=== PATIENT | female | born 1975 | race Caucasian/White ===

== ENCOUNTER → 2016-09-25 17:14 | Outpatient (CLI) | payer BC ==
[2010-12-13 07:22] VITALS: BMI 20.2
== END | disposition home or self-care (01) ==
LOC: D.MAMMO 16:00
DX: Z12.31 Encounter for screening mammogram for malignant neoplasm of breast (principal)

== ENCOUNTER 2017-03-28 06:43 | Day surgery (SDC) | payer BC ==
[~2017-03-28] VITALS: Ht 167.6 cm; Wt 63.6 kg
--- NOTE | ~2017-03-28 | OP ---
PATIENT NAME: NOÉ COLEMAN MEDICAL RECORD: [id number] :73 LOCATION:D.OPS ADMISSION DATE: SURGEON: DEMARCO BRAVO MD DATE OF OPERATION: 03/28/2017 PREOPERATIVE DIAGNOSES: 1. Epigastric abdominal pain. 2. Lower midline inferior chest pain. 3. Gastroesophageal reflux. POSTOPERATIVE DIAGNOSES: 1. Epigastric abdominal pain. 2. Lower midline inferior chest pain. 3. Gastroesophageal reflux. 4. Very mild gastritis at the pylorus. Normal duodenum. Small hiatal hernia. 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 PROCEDURE: Esophagogastroduodenoscopy with antral and distal esophageal biopsies. SURGEON: Demarco Bravo MD TRANSPORTATION CONSULTANT: None. BLOOD LOSS: Minimal. ANESTHESIA: IV sedation. COMPLICATIONS: None. The risks, possible complications and alternatives to the procedure were explained to the patient. She elects to proceed. ENDOSCOPIC COURSE: The patient was conveyed to the endoscopy suite electively on 03/28/2017. IV sedation was induced by the anesthesia staff. A bite block was inserted. A gastroscope was inserted into the mouth. It was advanced easily into the hypopharynx. The esophagus was easily intubated as were the stomach and duodenum. Upon withdrawal, retroflexed and angulus views were obtained. Antral biopsies were obtained. Distal esophageal biopsies were obtained. The endoscope was then withdrawn under direct vision. I found no reason for the patient's pain. We are going to proceed with the CT of the chest with IV contrast. TRANSINT:[id number] Voice Confirmation ID: [id number] DOCUMENT ID: [id number] DEMARCO BRAVO MD CC: DARWIN COLEMAN M.D. and DARWIN VEGAS MD [id number] DICTATION DATE: 03/28/17 1026 DOCUMENTATION IMPROVEMENT SPECIALIST: 03/28/17 1304 [address] [facility] [address] [place] [address]
--- NOTE | ~2017-03-28 | HP ---
PATIENT: NOÉ REED MEDICAL RECORD: [id number] ACCOUNT: [id number] LOCATION:DTAYA : 73 ADMISSION DATE: 03/28/17 HISTORY AND PHYSICAL EXAMINATION CHIEF COMPLAINT: Pain. HISTORY OF PRESENT ILLNESS: The patient has pain over the xiphoid process. No pain over the costochondral cartilages. She does have a history of reflux. Reflux is pretty well controlled. She states that she does not think that this is reflux type of pain. It is not necessarily associated with eating food. She has had a bout of nausea with eating food in the past; however, this pain was not associated with that. The entire examination was performed in the presence of a female nurse. This is Dr. Reed's . No melena. No hematochezia. No hematemesis. No odynophagia. No dysphagia. PAST MEDICAL AND SURGICAL HISTORY: History of right elbow surgery, history of breast augmentation, history of right knee arthroscopy, history of hysterectomy. REVIEW OF SYSTEMS: Negative for coronary artery disease or hypertension. Negative for CVA or seizures. Negative for diabetes or thyroid problems. ALLERGIES: CODEINE AND HYDROCODONE. HOME MEDICATIONS: Nexium. SOCIAL HISTORY: She is an avid runner, exercises frequently. She has not changed her exercise routine anytime recently. She is also a nonsmoker. PHYSICAL EXAMINATION: GENERAL: The patient does not appear acutely ill. She does not appear chronically ill. VITAL SIGNS: Reviewed. EARS: External ears appear normal. EYES: Extraocular movements are intact. NECK: Trachea is midline. CHEST: No intercostal retractions. The rest of the chest examination as listed above. ABDOMEN: Tender only over the xiphoid process, this is point tenderness. EXTREMITIES: No peripheral cyanosis. IMPRESSION: 1. Gastroesophageal reflux. 2. Epigastric abdominal pain/lower midline chest pain. PLAN: EGD. TRANSINT:[id number] Voice Confirmation ID: [id number] DOCUMENT ID: [id number] HISTORY AND PHYSICAL [id number] NOÉ REED ROBERT MD CC: DARWIN REED M.D. and DARWIN VEGAS MD [id number] DICTATION DATE: 03/28/17 1008 MAILROOM SUPERVISOR: 03/28/17 1121 [address] [facility] [address] [place] [address]
[2017-03-28 07:41] LABS: HEMATOCRIT 39.7 % (36.0-48.0); HEMOGLOBIN 13.5 g/dL (12-16); MCH 29.9 pg (26.0-34.0); MCV 87.8 fL (80.0-100.0); MEAN PLATELET VOLUME 10.3 fL (7.4-10.4); RBC 4.52 10x6/uL (4.00-5.40); RDW 12.5 % (11.5-14.5); WBC 5.5 10x3/uL (4.8-10.8)
[2017-03-28] MEDS ORDERED: NEXIUM20 MG PO (07:53)
[2017-03-28 07:59] VITALS: BP 112/72; Ht 167.6 cm; Wt 63.6 kg
--- NOTE | 2017-03-28 15:57 | NUR ---
1245--IV DC'D. JUNIOR HERNANDEZ 1300--DISCHARGE INSTRUCTIONS GIVEN, PT VERBALIZES UNDERSTANDING. PT OFF UNIT VIA WC. JUNIOR HERNANDEZ
== END 2017-03-28 13:00 | disposition home or self-care (01) ==
LOC: D.OPS 06:43
PROVIDERS: Anesthesiology
DX: R10.13 Epigastric pain (principal); K29.70 Gastritis, unspecified, without bleeding; K44.9 Diaphragmatic hernia without obstruction or gangrene; K21.9 Gastro-esophageal reflux disease without esophagitis; R07.9 Chest pain, unspecified; M19.041 Primary osteoarthritis, right hand

== ENCOUNTER → 2017-04-02 08:03 | Outpatient (CLI) | payer BC ==
[2017-03-28 07:59] VITALS: BMI 22.6
[~2017-04-02 08:03] MED LIST: NEXIUM20 MG PO
== END | disposition home or self-care (01) ==
LOC: D.NM 08:03
DX: R07.89 Other chest pain (principal)

== ENCOUNTER → 2017-04-10 10:42 | Outpatient (CLI) | payer BC ==
[2017-03-28 07:59] VITALS: BMI 22.6
== END | disposition home or self-care (01) ==
LOC: D.NM 10:42
DX: R10.13 Epigastric pain (principal)

== ENCOUNTER → 2017-05-01 08:03 | Outpatient (CLI) | payer BC ==
[2017-03-28 07:59] VITALS: BMI 22.6
== END | disposition home or self-care (01) ==
LOC: D.MRI 08:03
DX: M54.15 Radiculopathy, thoracolumbar region (principal); M51.36 Other intervertebral disc degeneration, lumbar region

== ENCOUNTER → 2017-05-08 10:21 | Outpatient (CLI) | payer BC ==
[2017-03-28 07:59] VITALS: BMI 22.6
== END | disposition home or self-care (01) ==
LOC: D.RAD 08:00
DX: R10.13 Epigastric pain (principal)

== ENCOUNTER 2018-01-17 19:29 | Emergency (ER) | payer BC ==
[~2018-01-17] VITALS: Ht 167.6 cm; Wt 65.8 kg
[2018-01-17 19:32] VITALS: BP 156/96; Ht 167.6 cm; Wt 65.8 kg
[2018-01-17] MEDS ORDERED: LEVOXYL25 MCG PO (19:33)
[2018-01-17] MEDS ORDERED: LIDEX 0.05% CRE15 GM TOPICAL (19:38)
== END 2018-01-17 20:03 | disposition home or self-care (01) ==
LOC: D.ER 19:29
DX: L25.9 Unspecified contact dermatitis, unspecified cause (principal); K21.9 Gastro-esophageal reflux disease without esophagitis

== ENCOUNTER 2018-08-03 10:58 | Outpatient (CLI) | payer BC ==
[~2018-08-03] VITALS: Ht 167.6 cm; Wt 65.9 kg
--- NOTE | ~2018-08-03 | HEMODYNAMI ---
PATIENT:NOÉ COLEMAN MEDICAL RECORD: [id number] : 73 LOCATION:DSINAI ADMISSION DATE: 08/03/18 Generatedon:08/03/201814:56 Patient name: NOÉ COLEMAN Patient #: [id number] SSN: : Date of study: 08/03/2018 Page: Of Hemodynamic Procedure Report Patient Data Patient Demographics Procedure consent was obtained First Name: NOÉ Gender: Female Last Name: JARED : 1975 [facility] Initial: CHRISS Age: 42 year(s) Patient #: [id number] Race: Additional ID: [id number] Contact details Address: [address] [place] [address] State: [place] City: [place] Zip code: [address] Past Medical History Allergies Allergen Reaction Date Comments Reported Codeine 08/03/2018 Admission Admission Data Admission Date: 08/03/2018 Admission Time: 10:58 Lab Results Lab Result Date: 08/03/2018 Lab Result Time: 0:00 Biochemistry Name Units Result Min Max BUN mg/dl 11 --(-*--)-- 7 18 Creatinine mg/dl 0.7 --(*---)-- 0.6 1.3 CBC Name Units Result Min Max Hemoglobin g/dl 13.5 --(*---)-- 13.5 17.5 Procedure Procedure Types Cath Procedure Diagnostic Procedure LHC C w/Coronaries Procedure Description Procedure Date Procedure Date: 08/03/2018 Procedure Start Time: 14:43 Procedure End Time: 14:55 Procedure Staff Name Function Erickson Conley MD Performing Physician Ana Cristina Zapata RN Nurse Nikole Jiménez RT Scrub Alexis Suh RT Monitor Procedure Data Cath Procedure Fluoroscopy Diagnostic fluoroscopy Total fluoroscopy Time: 0.8 time: 0.8 min min Diagnostic fluoroscopy Total fluoroscopy dose: 154 dose: 154 mGy mGy Contrast Material Contrast Material Type Amount (ml) Isovue 300 50 Entry Location Entry Primary Successful Side Size Upsize Upsize Entry Closure Succes sful Closure Location (Fr) 1 (Fr) 2 (Fr) Remarks Device Remarks Femoral Right 5 Fr Exoseal artery Estimated blood loss: 5 ml Diagnostic catheters Device Type Used For End Catheter Placement MULTIPACK JL 4.0 5Fr Procedure catheter MULTIPACK 3DRC 5Fr Procedure catheter MULTIPACK Pigtail 5 Fr Procedure catheter Procedure Medications Medication Administration Route Dosage Oxygen etCO2 Nasal cannula 2 l/min Lidocaine 2% added to field 20 Heparin Flush Bag added to field 2 bags (1000units/500ml NS) 0.9% NaCl I.V. 100 ml/hr Versed I.V. 1 mg Fentanyl I.V. 50 mcg Versed I.V. 1 mg Versed I.V. 1 mg Fentanyl I.V. 50 mcg Hemodynamics Rest HGB: 13.5 (g/dl) Heart Rate: 64 (bpm) Pressure Samples Time Site Value (mmHg) Purpose Heart Use Rate(bpm) 14:48 LV 108/4,13 Snapshot 59 Gradients Valve Time Site Site Mean SEP/DFP Peak To Heart Use 1 2 (mmHg) (sec/min) Peak Rate (mmHg) (bpm) Aortic 14:49 LV AO 68 Snapshots Pre Cath Intra NCS Post Cath Vital Signs Time Heart Resp SPO2 etCO2 NIBP (mmHg) Rhythm Pain Sedation Rate (ipm) (%) (mmHg) Status Level (bpm) 14:32:48 66 16 100 34.3 131/79(95) NSR 0 (11) 10(A) , No pain 14:36:54 67 17 99 35.8 126/82(93) NSR 0 (11) 10(A) , No pain 14:40:59 71 27 96 34.3 122/76(96) NSR 0 (11) 10(A) , No pain 14:45:05 65 52 95 34.4 115/72(90) NSR 0 (11) 10(A) , No pain 14:49:09 71 17 94 0 133/72(101) NSR 0 (11) 10(A) , No pain 14:53:21 67 16 96 0 121/66(86) NSR 0 (11) 10(A) , No pain Medications Time Medication Route Dose Verified Delivered Reason Notes Eff ectiveness by by 14:39:29 Oxygen etCO2 2 Erickson De La Paz used for Nasal l/min [facility] Zapata RN procedure cannula 14:39:36 Lidocaine 2% added 20ml Erickson Almendarez for local to vial [facility] anesthetic field MD DUNCAN 14:39:42 Heparin Flush added 2 Erickson Almendarez used for Bag to bags [facility] procedure (1000units/500ml field MD DUNCAN NS) 14:39:50 0.9% NaCl I.V. 100 Erickson De La Paz Per ml/hr [facility] Zapata RN physician 14:41:21 Versed I.V. 1 mg Erickson De La Paz for [facility] Zapata RN sedation 14:41:26 Fentanyl I.V. 50 Erickson Gallowayie for [facility] Zapata RN sedation 14:46:51 Versed I.V. 1 mg Erickson Gallowayie for [facility] Zapata RN sedation 14:46:58 Fentanyl I.V. 50 Erickson Gallowayie for [facility] Zapata RN sedation 14:50:55 Versed I.V. 1 mg Erickson Gallowayie for Yael Jodi RN sedation Procedure Log Time Note 14:15:11 Ana Cristina Zapata RN sent for patient. Start room use. 14:18:55 Informed consent obtained and on chart 14:19:33 Diagnostic Cath Status : Elective 14:23:35 Time tracking: Regular hours (M-F 7:00 - 5:00) 14:23:41 Plan of Care:Hemodynamics will remain stable., Cardiac rhythm will remain stable., Comfort level will be maintained., Respiratory function will remain adequate., Patient/ family verbilizes understanding of procedure., Procedure tolerated without complication., Recovers from procedure without complications.. 14:23:50 Patient received from Pre/Post Procedure Room to [facility] 2 Alert and oriented. Tansferred to table in Supine position. 14:31:40 Warm blankets applied, and mica hugger turned on for patient comfort. 14:31:40 Correct patient and procedure confirmed by team. 14:31:41 ECG and BP/O2 sat monitors applied to patient. 14:31:42 Vital chart was started 14:31:43 Baseline sample Acquired. 14:31:48 Rhythm: sinus rhythm 14:31:59 Full Disclosure recording started 14:32:22 H&P Date Dictated: 07/31/2018 Within 30 days and on chart., H&P Addendum completed by physician on day of procedure. (MUST COMPLETE FOR ALL OUTPATIENTS). 14:32:24 Pre-procedure instructions explained to patient. 14:32:25 Pre-op teaching completed and patient verbalized understanding. 14:32:29 Family in waiting room. 14:32:58 Patient NPO since Midnight. 14:33:09 Patient allergic to Codeine 14:34:13 ALLERGY TO CODEIN, AND HYDROCODONE 14:36:22 Is the patient allergic to Iodine/contrast media? No. 14:36:26 Is patient on blood thinner?No 14:36:28 Patient diabetic? No. 14:36:31 If diabetic: On Metformin? No 14:36:35 Patient not . Patient has had hysterectomy. 14:36:40 Previous problem with sedation/anesthesia? No ? 14:36:42 Snore? No 14:36:45 Sleep apnea? No 14:36:54 Deviated septum? No 14:36:55 Opens mouth fully? Yes 14:36:56 Sticks out tongue? Yes 14:37:44 Airway obstruction? No ? 14:37:48 Dentures? No ? 14:37:53 Pre procedure: right posterior tibial pulse 2+ Normal; easily identifiable; not easily obliterated 14:38:02 Patient pain scale 0/10 ?. 14:38:17 IV patent on arrival in left antecubital with 0.9% NaCl at [facility]. 14:39:29 Oxygen 2 l/min etCO2 Nasal cannula was administered by Ana Cristina Zapata RN; used for procedure; 14:39:36 Lidocaine 2% 20ml vial added to field was administered by Erickson Conley MD; for local anesthetic; 14:39:42 Heparin Flush Bag (1000units/500ml NS) 2 bags added to field was administered by Erickson Conley MD; used for procedure; 14:39:50 0.9% NaCl 100 ml/hr I.V. was administered by Ana Cristina Zapata RN; Per physician; 14:40:33 Lab Result : BUN 11 mg/dl 14:40:33 Lab Result : Hemoglobin 13.5 g/dl 14:40:33 Lab Result : Creatinine 0.7 mg/dl 14:40:37 Lab results completed and on chart. 14:40:42 Right groin area was prepped with chlora-prep and draped in sterile fashion 14:40:44 Alarms reviewed by R. N. 14:40:45 Sharps counted by scrub and verified by R.N. 14:40:48 Physician arrived 14:40:48 --------ALL STOP TIME OUT------ 14:40:49 Final Timeout: patient, procedure, and site verified with staff and physician. All members of the team are in agreement. 14:40:52 Right groin site verified by team. 14:40:57 Physical assessment completed. ASA score P 2 - A patient with mild systemic disease as per Erickson Conley MD. 14:41:21 Versed 1 mg I.V. was administered by Ana Cristina Zapata RN; for sedation; 14:41:26 Fentanyl 50 mcg I.V. was administered by Ana Cristina Zapata RN; for sedation; 14:42:15 Sedation plan: IV Moderate Sedation Medication:Versed, Fentanyl 14:42:35 Use device set Femoral Dx 14:42:36 ACIST Syringe (56682) opened to sterile field. 14:42:37 Bag Decanter (2002S) opened to sterile field. 14:42:37 Medline Cath Pack ([id number]) opened to sterile field. 14:42:38 DIAGNOSTIC WIRE .035 260cm J wire (466510) opened to sterile field. 14:42:40 ACIST Hand Control (93001) opened to sterile field. 14:42:41 ACIST Manifold (59506) opened to sterile field. 14:42:42 DIAGNOSTIC Multipack 5Fr catheter set ([id number]) opened to sterile field. 14:42:42 Tegaderm 4 x 4 (1626W) opened to sterile field. 14:42:45 SHEATH 5FR [place] (ZFI334) opened to sterile field. 14:42:51 Zero performed for pressure channel P1 14:43:34 Procedure started. 14:43:42 Local anesthetic to right femoral artery with Lidocaine 2% by Erickson Conley MD.INITIAL ACCESS ONLY 14:44:29 A 5 Fr sheath was inserted into the Right Femoral artery 14:45:05 A MULTIPACK JL 4.0 5Fr catheter was advanced over the wire and used for Procedure. 14:45:40 LCA angiography performed. 14:46:40 Catheter removed. 14:46:48 A MULTIPACK 3DRC 5Fr catheter was advanced over the wire and used for Procedure. 14:46:51 Versed 1 mg I.V. was administered by Buffie Zapata RN; for sedation; 14:46:58 Fentanyl 50 mcg I.V. was administered by Ana Cristina Zapata RN; for sedation; 14:47:32 RCA angiography performed. 14:48:07 Catheter removed. 14:48:13 A MULTIPACK Pigtail 5 Fr catheter was advanced over the wire and used for Procedure. 14:48:42 LV hemodynamics recorded. 14:48:44 LV gram done using TRUJILLO 14:49:07 EF : 55 % 14:49:14 EXOSEAL 5Fr (EX500) opened to sterile field. 14:49:28 Catheter removed. 14:49:53 Sheath removed intact; hemostasis achieved with Exoseal to the Right Femoral artery. 14:50:02 Procedure ended.(Physican Out) 14:50:19 Fluoroscopy time 00.80 minutes. 14:50:29 Fluoroscopy dose: 154 mGy 14:50:29 Flurop Dose total: 154 14:50:36 Contrast amount:Isovue 300 50ml. 14:50:38 Sharps counted by scrub and verified by R.N. 14:50:55 Versed 1 mg I.V. was administered by Ana Cristina Zapata RN; for sedation; 14:53:47 Insertion/operative site no bleeding no hematoma. 14:53:52 Post-op/insertion site Right Femoral artery dressed using a 4 x 4 and Tegaderm. 14:53:58 Post right femoral artery:stable 14:54:15 Post Procedure Pulses reassessed and unchanged 14:54:22 Post-procedure physical assessment completed. ASA score P 2 - A patient with mild systemic disease as per Erickson Conley MD. 14:54:26 Post procedure rhythm: sinus rhythm 14:54:31 Estimated blood loss: 5 ml 14:54:33 Post procedure instruction explained to patient.Patient verbalizes understanding. 14:54:34 Patient needs reinforcement of post procedure teaching. 14:54:35 Procedure and supply charges have been captured, reviewed, submitted and are correct. 14:55:33 Vital chart was stopped 14:55:34 See physician's report for complete and final results. 14:55:43 Report given to Pre/Post Procedure Room. 14:55:50 Patient transfered to Pre/Post Procedure Room with Stretcher. 14:55:53 Procedure ended. 14:55:53 Full Disclosure recording stopped 14:55:58 End room use (Document Last) Device Usage Item Name Manufacture Quantity Catalog Hospital Part Current Minimal L ot# / Number Charge Number Stock Stock Serial# Code ACIST Acist 1 90599 400067 388209 919636 20 Syringe Medical (50604) Systems Inc Bag Microtek 1 2001S 545200 86736 076988 5 Decanter Medical Inc. () Medline Medline 1 [id number] 840982 18599 925630 5 Cath Pack ([id number]) DIAGNOSTIC [facility] [place] 1 415437 693231 106950 434857 30 WIRE .035 260cm J wire (501520) ACIST Hand Acist 1 08958 912534 406539 408734 5 Control Medical (15686) Systems Inc ACIST Acist 1 29170 987645 294656 156111 5 Manifold Medical (87212) Systems Inc DIAGNOSTIC Cardinal 1 [id number] 731062 06356 603538 30 Multipack Health 5Fr catheter set (ZW9400) Tegaderm 4 3M 1 1626W 134433 183041 096991 5 x 4 (1626W) SHEATH 5FR Terumo 1 OLI253 106319 569924 188683 5 [place] (AJU554) MULTIPACK Cardinal 1 457087 5 JL 4.0 5Fr Health catheter MULTIPACK Cardinal 1 985856 5 3DRC 5Fr Health catheter MULTIPACK Cardinal 1 632004 5 Pigtail 5 Health Fr catheter EXOSEAL 5Fr Cardinal 1 EX500 369550 629913 773700 10 (EX500) Health Signature Audit Wright Stage Time Signature Unsigned Intra-Procedure 08/03/2018 Alexis Suh 2:56:34 PM RT(R) (CV) Signatures Monitor : Alexis Suh RT Signature : Date : Time : [facility] [address] [facility] [place] [address]
[~2018-08-03 10:58] MED LIST changes: +LEVOXYL25 MCG PO; +LIDEX 0.05% CRE15 GM TOPICAL
[2018-08-03 11:36] VITALS: Ht 167.6 cm; Wt 65.9 kg
[2018-08-03 11:56] LABS: BASOPHILS 0.3 % (0-2); HEMATOCRIT 39.9 % (36.0-48.0); HEMOGLOBIN 13.5 g/dL (12-16); LYMPHOCYTES 32.6 % (15-50); MCH 29.5 pg (26.0-34.0); MCHC 33.8 g/dL (31.0-37.0); MCV 87.3 fL (80.0-100.0); NEUTROPHILS 59.1 % (40-80); PLATELET COUNT 171 10x3/uL (130-400); RBC 4.57 10x6/uL (4.00-5.40); RDW 12.8 % (11.5-14.5); WBC 5.9 10x3/uL (4.8-10.8)
[2018-08-03 12:03] LABS: CALC OSMOLALITY 276 mosm/kg (275-300); CALCIUM 8.7 mg/dL (8.5-10.1); CARBON DIOXIDE 23.4 mmol/L (21.0-32.0); CHLORIDE - SERUM 105 mmol/L (98-107); CREATININE - SERUM 0.7 mg/dL (0.6-1.3); GLUCOSE 93 mg/dL (74-106); POTASSIUM - SERUM 3.9 mmol/L (3.5-5.1); SODIUM 139 mmol/L (136-145); UREA NITROGEN 11 mg/dL (7-18); eGFR NON AFRICAN AMERICAN > 90 mL/min (90-120)
--- NOTE | 2018-08-03 15:22 | NUR ---
PO FLUIDS AT BEDSIDE.
--- NOTE | 2018-08-03 15:22 | NUR ---
5 FR EXOSEAL IS CDI TO RIGHT GROIN, AREA IS SOFT AND NONTENDER. PEDAL PULSES PALPABLE. HOB IS FLAT. NSR AND DENIES ANY C/O CHEST PAIN. FRIEND AT BEDSIDE, CALL LIGHT IN REACH.
--- NOTE | 2018-08-03 15:51 | NUR ---
5 FR EXOSEAL IS CDI TO RIGHT GROIN, AREA IS SOFT AND NONTENDER. PEDAL PULSES PALPABLE. HOB IS FLAT, VSS, FRIEND AT BEDSIDE. RESP WITH EASE ON ROOM AIR. PT IA ALERT AND DENIES ANY C/O. TOLERATING PO FLUIDS WITH NO NAUSEA.
--- NOTE | 2018-08-03 16:13 | NUR ---
5 FR EXOSEAL CDI TO RIGHT GROIN, AREA IS SOFT AND NONTENDER. PEDAL PULSES PALPABLE. VSS, PT IS ALERT AND DENIES ANY C/O. HOB ELEVATED 30 DEGREES AND SANDWICH SERVED.
--- NOTE | 2018-08-03 16:28 | NUR ---
DRESSING REMAINS CDI, PEDAL PULSES PALPABLE. HOB FULLY ELEVATED . VSS. PT HAS TOLERATED SANDWICH WITH NO C/O NAUSEA.
--- NOTE | 2018-08-03 16:34 | NUR ---
DRESSING REMAINS CDI TO RIGHT GROIN, AREA IS SOFT AND NONTENDER. PEDAL PULSES PALPABLE. DC INSTRUCTIONS REVIEWED WITH PT WHO VERBALIZES UNDERSTANDING.
--- NOTE | 2018-08-03 16:52 | NUR ---
DRESSING REMAINS CDI TO RIGHT GROIN, AREA IS SOFT AND NONTENDER. PEDAL PULSES PALPABLE. IV DC'D WITH CATH INTACT AND PT IS DRESSING FOR DC TO HOME.
--- NOTE | 2018-08-03 17:29 | NUR ---
PT ALERT AND DENIES ANY C/O. IS HERE TO PICK HER UP. PT ESCORTED TO PRIVATE AUTO VIA WC BY NURSE WITH HER DRIVING HER HOME. PT DENIES ANY C/O UPON DC, HAS ALL PERSONAL BELONGINGS AND DC INSTRUCTIONS.
--- NOTE | 2018-08-08 12:54 | OP ---
PATIENT NAME: NOÉ COLEMAN MEDICAL RECORD: [id number] :73 LOCATION:D.CAT ADMISSION DATE: SURGEON: CORTES PEREZ MD DATE OF OPERATION: 08/03/2018 PROCEDURE: Left heart catheterization, selective coronary angiography, right femoral artery approach. CATHETERS: A 5-[place] sheath, 5/4 left and right Ashanti, 5/4 pig. The procedure was well tolerated. The patient was returned to the stevenson. Sheath was removed. ExoSeal device was placed. FINDINGS: Left ventriculography in 30-degree TRUJILLO view: Normal wall motion and normal systolic function. CORONARY ANATOMY: LEFT MAIN: Left main is free of disease. LAD: Free of disease in the diagonal system. CIRCUMFLEX: Left dominant system, free of disease. RIGHT CORONARY ARTERY: Rudimentary, free of disease. IMPRESSION: Normal LV systolic function. Normal coronary artery. TRANSINT:[id number] Voice Confirmation ID: [id number] DOCUMENT ID: [id number] CORTES PEREZ MD at 1254 CC: [id number] DICTATION DATE: 08/03/18 1510 FRONT OFFICE REPRESENTATIVE: 08/03/182103 DEP CLI 08/03/18 [facility] [address] [facility] [place] [address]
== END 2018-08-03 17:25 | disposition home or self-care (01) ==
LOC: D.CATH 10:58
PROVIDERS: Internal Medicine Interventional Cardiology
DX: R07.89 Other chest pain (principal); Z01.812 Encounter for preprocedural laboratory examination; R00.2 Palpitations; Z88.5 Allergy status to narcotic agent

== ENCOUNTER → 2019-04-14 10:00 | Outpatient (CLI) | payer BC ==
[2018-08-03 11:36] VITALS: BMI 23.4
== END | disposition home or self-care (01) ==
LOC: D.MAMMO 10:00
PROVIDERS: ATTEND Family Medicine
DX: Z12.31 Encounter for screening mammogram for malignant neoplasm of breast (principal)